=== PATIENT | male | born 1975 | race Caucasian/White ===

== ENCOUNTER 2022-09-09 11:13 | Emergency (ER) | payer OTHER, SELFPAY ==
[2022-09-09] MEDS ORDERED: Azithromycin 500 MG VIAL ONE (12:36)
[2022-09-09] MEDS ORDERED: Cephalexin 250 MG CAP ONE (12:36)
[2022-09-09] MEDS ORDERED: Azithromycin 250 MG TAB ONE (12:37)
== END 2022-09-09 12:40 | disposition home or self-care (01) ==
LOC: NAV ERS 11:13
DX: L03.113 Cellulitis of right upper limb (principal); W55.03XA Scratched by cat, initial encounter
CPT/HCPCS: J0456